=== PATIENT | male | born 1970 | race African-American/Black ===

== ENCOUNTER 2021-12-01 05:02 | Emergency (ER) | payer SELFPAY ==
[2021-12-01 05:03] VITALS: BP 120/78; PULSE 63; RESP 13; TEMP 36; O2SAT 100; BMI 26.3
--- NOTE | 2021-12-01 05:07 | EKG12_ITS ---
Test Reason : CP Blood Pressure : / mmHG Vent. Rate : 060 BPM Atrial Rate : 060 BPM P-R Int : 144 ms QRS Dur : 086 ms QT Int : 424 ms P-R-T Axes : 074 056 049 degrees QTc Int : 424 ms Sinus rhythm with marked sinus arrhythmia Confirmed by NICKI STEIN, KIP ([id number]), tape editor LEIA GARSIA ([id number]) on 12/04/2021 11:13:56 AM Referred By: THADDEUS Confirmed By:KIP CACERES MD
--- NOTE | 2021-12-01 05:18 | EKG12_ITS ---
Test Reason : CP Blood Pressure : / mmHG Vent. Rate : 061 BPM Atrial Rate : 061 BPM P-R Int : 138 ms QRS Dur : 086 ms QT Int : 434 ms P-R-T Axes : 073 055 048 degrees QTc Int : 436 ms Sinus rhythm with marked sinus arrhythmia Otherwise normal ECG Confirmed by NICKI STEIN, KIP ([id number]), online editor LEIA GARSIA ([id number]) on 12/03/2021 8:43:18 AM Referred By: THADDEUS Confirmed By:KIP CACERES MD
--- NOTE | 2021-12-01 05:19 | RAD_ITS ---
EXAM: XR CHEST, 1 VIEW CLINICAL INDICATION: chest pain TECHNIQUE: Frontal view of the chest. This report was created using [employer] report generation technology. COMPARISON: September 12, 2015, November 30, 2014 FINDINGS: LUNGS AND PLEURAL SPACES: Unremarkable. No consolidation or edema. No pneumothorax. No effusion. HEART: Unremarkable. Cardiac silhouette not enlarged. MEDIASTINUM: Central airways and mediastinal contour are unremarkable. BONES/JOINTS: Unremarkable. SOFT TISSUES: Unremarkable. RAD/Chest 1 View (Portable) IMPRESSION: No radiographic evidence of acute cardiopulmonary disease. Electronically Signed: Jessa Canela MD at 5:49 EDT ,
[2021-12-01 05:30] LABS: Absolute Lymphocyte Count 0.88 X10^3/uL (0.83-4.51); Absolute Neutrophil Count 11.8 X10^3/uL (2.0-7.7); Basophil# 0.02 X10^3/uL; Basophil% 0.2 % (0-1); Hematocrit 40.5 % (40-54); Hemoglobin 13.5 g/dL (13.0-16.5); Lymphocyte # 0.88 X10^3/ul (0.83-4.51); Lymphocyte % 6.6 % (19-41); Mean Corp Hgb Conc 33.3 g/dL (32-36); Mean Corpuscular Volume 87.1 fL (80-94); Mean Platelet Vol. 9.3 fl (6.2-12.0); Monocyte# 0.47 X10^3/uL; Monocyte% 3.5 % (0-10); NRBC Flagged by Analyzer 0 % (0-5); Neutrophil # 11.82 X10^3/uL (2.7-7.7); Neutrophil % 89.3 % (47-70); Platelet Count 221 K/mm3 (150-450); RBC Distribution Width CV 12.8 % (11.6-14.6); RBC Distribution Width SD 40.7 fl (35.1-43.9); Red Blood Count 4.65 M/mm3 (4.6-6.2); White Blood Count 13.2 K/mm3 (4.4-11.0)
--- NOTE | 2021-12-01 05:31 | ED.VIS.CHEST ---
HPI History of Present Illness Chief Complaint: Chest Pain Informant: patient Onset/Context/Timing Onset: Yesterday Activity at onset: gradual and onset Timing: Continuous Quality: Positive for - (Grabbing) Location: Substernal (Without radiation) Current Severity: Mild Maximum Severity: Moderate Worsened By: - (A little worse with lying down); Not Worsened By Exertion or Breathing Relieved By: - (Sitting up) Associated Symptoms: Positive for Nausea, Vomiting, Cough and Fever (Subjective); Negative for Dyspnea, Lightheadedness or Palpitations Narrative Narrative: Patient states he has been coughing for several days, felt like he started getting fevers last night, nauseated, started having vomiting and diarrhea around similar time that he started developing chest discomfort, when asked if his chest discomfort started after the vomiting, he states he could have. He denies any dyspnea or pleuritic symptoms. No abdominal pain. No bright red blood per rectum or melena. No known sick contacts including COVID. He is vaccinated. No travel out of the area recently. PFSH PFSH Medical History no medical history no medical history Home Medications promethazine 25 mg tablet 25 mg PO Q6H PRN PRN Nausea #12 TABLETS 12/01/21 [Rx Last Taken Unknown] Allergy/AdvReac Type Severity Reaction Status Date / Time No Known Allergies Allergy Verified 09/10/16 08:23 Surgical History no surgical history Social History Smoking Status: Current every day smoker tobacco type: cigarettes ROS ROS ED Constitutional Constitutional ED: Reports body ache(s), chills, fatigue, fever(s), headache(s) and malaise Eyes Eyes: Denies change in vision or diplopia ENT ENT ED: Denies rhinorrhea or sore throat Cardiovascular Cardiovascular: Reports chest pain; Denies palpitations Respiratory/Chest Respiratory/Chest: Reports cough; Denies dyspnea or dyspnea on exertion Gastrointestinal Gastrointestinal: Reports diarrhea, nausea and vomiting; Denies abdominal pain, hematemesis, hematochezia or melena Genitourinary Genitourinary ED: Denies dysuria or hematuria Musculoskeletal Musculoskeletal: Denies back pain or neck pain Integumentary Denies abscess or rash Neurologic Neurologic: Reports headache(s) and other Details: Did have a headache earlier but currently gone ; Denies paresthesias or weakness Psychiatric Psychiatric: Denies anxiety or suicidal thoughts EXAM Physical Exam Const Vital Signs: 12/01/21 05:03 12/01/21 05:07 Temperature 96.8 F L Temperature Source Temporal Pulse Rate 63 Respiratory Rate 13 Respiratory Effort Normal Non-Labored Blood Pressure 120/78 Blood Pressure Mean 92 Pulse Ox 100 Oxygen Delivery Method Room Air Positive well nourished and well developed Constitutional Narrative: Malaised-appearing, no distress General Appearance ED: well developed and NAD HEENT Reports moist mucous membranes normocephalic and atraumatic Eyes PERRL and EOMs intact bilaterally Neck full ROM and supple Resp normal respiratory effort and clear to auscultation bilaterally Cardio regular rate, regular rhythm and no murmurs Rate: Negative for tachycardic GI normal to inspection, nondistended, normoactive bowel sounds, non-tender and non-distended Auscultation: normoactive bowel sounds Palpation: soft Back/Spine no CVA tenderness General Back: other FROM Extremity normal to inspection and no calf tenderness General Extremety ED: Negative for edema, pulses abnormal or tenderness General Extremity: Negative for edema or pulses abnormal Neuro oriented x3, CN's II-XII intact bilaterally and no sensory deficits noted Sensorium / Orientation: awake and alert Motor Exam: strength 5/5 throughout Skin no rashes or lesions noted and no wounds Heart Score History: Slightly/Non-Suspicious ECG: Normal Age: >45 - <65 years Risk Factors: 1 or 2 Risk Factors Troponin: </= Normal Limit Score: 2 MDM MDM MDM Narrative Medical decision making narrative: After Zofran and GI cocktail patient's chest discomfort resolved and did not return. His cardiac work-up is negative, single high-sensitivity troponin is 6, but he has had discomfort all night and I do not think he needs a second measurement 2 hours later in order to rule out acute coronary syndrome for this discomfort. His COVID and flu rapid testing was negative. Suspect he has viral gastroenteritis. After the Zofran, he vomited again, nonbilious nonbloody liquid yellow stomach contents. He was given Reglan, and discharged with a prescription for oral Phenergan tablets, and he is comfortable with that plan. Lab Data Attestation: I reviewed the patient's lab results. Labs: Laboratory Results - last 24 hr 12/01/21 12/01/21 05:10 05:10 WBC 13.2 H RBC 4.65 Hgb 13.5 Hct 40.5 MCV 87.1 MCH 29.0 MCHC 33.3 RDW Std Deviation 40.7 RDW Coeff of Brittany 12.8 Plt Count 221 MPV 9.3 Immature Gran % (Auto) 0.400 Neut % (Auto) 89.3 H Lymph % (Auto) 6.6 L Whitfield % (Auto) 3.5 Eos % (Auto) 0.0 Baso % (Auto) 0.2 Absolute Neuts (auto) 11.8 H Absolute Lymphs (auto) 0.88 Nucleated RBC % 0 Sodium 138 Potassium 4.1 Chloride 108 H Carbon Dioxide 24.0 Anion Gap 6 BUN 12 Creatinine 0.88 Estim Creat Clear Calc 97.16 Est GFR (MDRD) Af Amer 118 Est GFR (MDRD) Non-Af 97 BUN/Creatinine Ratio 13.6 Glucose 144 H Calcium 9.3 Troponin I High Sens 6 Radiography Chest X-Ray - ED: 1 View, Read by ED Physician, No Acute Disease and No Infiltrates Diagnostic Testing: Clinical Impression(s) from Imaging Studies Chest X-Ray 12/01/21 05:19 IMPRESSION: No radiographic evidence of acute cardiopulmonary disease. Electronically Signed: Jessa Canela MD at 5:49 EDT , Rhythm Strip Rhythm Strip: Sinus arrhythmia Rate: 60 Ectopy: None EKG Initial EKG: Attestation: I personally reviewed and interpreted this EKG as follows: Interpretation: No Acute Injury Pattern and Sinus Arrythmia (Otherwise normal EKG) Discharge Plan Triage Chief Complaint: Chest Pain ED Provider: Lars Macdonald Dx/Rx/DC Orders Clinical Impression: Acute viral syndrome, Nausea, vomiting, and diarrhea, Chest pain Instructions: Viral Gastroenteritis, ED Diet for Vomiting or ... Prescriptions: New promethazine [promethazine] 25 mg tablet 25 mg PO Q6H PRN PRN (Reason: Nausea) Qty: 12 0RF Primary Care Provider: Jeovany Russell Referrals: Jeovany Russell, PA [Primary Care Provider] - 3-5 Days if not improving Disposition Disposition: Home, Self Care
[2021-12-01] MEDS: Ondansetron 4 MG/2 ML Vial IV (05:42)
[2021-12-01] MEDS: Mag Hydrox/Al Hydrox/Simeth 30 ML UDC PO (05:42)
[2021-12-01] MEDS: 0.9% Normal Saline 1,000 ML 999 ML IV (05:42)
[2021-12-01 05:57] LABS: Anion Gap 6 (5-15); BUN 12 mg/dL (7-18); BUN/Creat Ratio 13.6 RATIO (10-20); Calcium,Total 9.3 mg/dL (8.5-10.1); Chloride 108 mmol/L (98-107); Creatinine, Serum 0.88 mg/dL (0.70-1.30); EST Glomerular Filtration Rate 97 mL/min (>60); Est Glom Filt Rate - Afr Amer 118 mL/min (>60); Estimated Creatinine Clearance 97.16 ml/min; Glucose 144 mg/dL (74-106); Potassium 4.1 mmol/L (3.5-5.1); Sodium Level 138 mmol/L (136-145); Troponin-I HS 6 pg/mL (3.0-78.0)
[2021-12-01] MEDS: Metoclopramide 10 MG/2 ML Vial 5 MG IV (07:35)
== END 2021-12-01 08:20 | disposition home or self-care (01) ==
PROVIDERS: Emergency Provider Emergency Medicine; PCP Physician Assistant; Visit Provider Emergency Medicine
DX: B34.9 Viral infection, unspecified (principal); R11.2 Nausea with vomiting, unspecified; F17.210 Nicotine dependence, cigarettes, uncomplicated; R19.7 Diarrhea, unspecified; R07.9 Chest pain, unspecified
CPT/HCPCS: 71045; 80048; 84484; 85025; 87428; 93005; 96361; 96374; 96375; 99283; A4216; J2405

== ENCOUNTER 2024-10-22 11:00 | Emergency (ER) | payer SELFPAY ==
[2024-10-22 11:01] VITALS: BP 108/68; PULSE 81; RESP 18; TEMP 36.6; O2SAT 100; BMI 26.6
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
[2024-10-22] MEDS: Ibuprofen 600 MG Tablet PO (11:28)
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
[2024-10-22 11:40] VITALS: O2SAT 97
== END 2024-10-22 12:32 | disposition home or self-care (01) ==
PROVIDERS: Emergency Provider Emergency Medicine; Visit Provider Emergency Medicine
DX: S39.012A Strain of muscle, fascia and tendon of lower back, initial encounter (principal); S16.1XXA Strain of muscle, fascia and tendon at neck level, initial encounter; S29.012A Strain of muscle and tendon of back wall of thorax, initial encounter; F17.210 Nicotine dependence, cigarettes, uncomplicated; V43.52XA Car driver injured in collision with other type car in traffic accident, initial encounter
CPT/HCPCS: 72040; 72100; 99282

== ENCOUNTER 2024-11-06 11:01 | Emergency (ER) | payer SELFPAY ==
[2024-11-06 11:01] VITALS: BP 147/70; PULSE 79; RESP 16; TEMP 36.7; O2SAT 99; BMI 27.9
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
[2024-11-06 12:21] VITALS: BP 132/77; PULSE 71; RESP 16; TEMP 36.8; O2SAT 100
== END 2024-11-06 12:22 | disposition home or self-care (01) ==
PROVIDERS: Emergency Provider Emergency Medicine; Referring Provider Emergency Medicine; Visit Provider Emergency Medicine
DX: S16.1XXA Strain of muscle, fascia and tendon at neck level, initial encounter (principal); S46.911A Strain of unspecified muscle, fascia and tendon at shoulder and upper arm level, right arm, initial encounter; M54.9 Dorsalgia, unspecified; V43.52XA Car driver injured in collision with other type car in traffic accident, initial encounter; F17.210 Nicotine dependence, cigarettes, uncomplicated
CPT/HCPCS: 73030; 99282